=== PATIENT | female | born 1985 | race Caucasian/White ===

== ENCOUNTER 2022-10-30 08:28 | Emergency (ER) | payer OTHER, SELFPAY ==
[2022-10-30 08:29] VITALS: BP 106/80; PULSE 85; RESP 22; TEMP 36.6; O2SAT 100; BMI 19.8
--- NOTE | 2022-10-30 08:38 | CT_ITS ---
HISTORY: Left flank pain. TECHNIQUE: Helically acquired images were obtained of the abdomen and pelvis without oral or IV contrast. A radiation dose optimization technique was used for this scan. 445 images. COMPARISON: None. FINDINGS: LOWER CHEST: Lung bases clear. Breast implants noted BOWEL: Mild hiatal hernia. Bowel including appendix nondilated. 3 mm appendicolith without periappendiceal inflammation. Moderate stool in the colon. LIVER: Unremarkable. GALLBLADDER/BILIARY TREE: Gallbladder present. SPLEEN/PANCREAS: No focal cystic or solid mass. KIDNEYS AND URETERS: Mild left hydroureteronephrosis and perinephric stranding secondary to a 2 mm uterovesical junction calculus. 2 mm left lower pole calculus. No right nephrolithiasis or hydronephrosis. ADRENAL GLANDS: No nodules. VESSELS: No abdominal aortic aneurysm. PELVIC ORGANS: Retroverted uterus. Trace free fluid in the pelvis, which can be physiological. BONES: Intact. CT/Abdomen/Pelvis without Cont IMPRESSION: Mild left hydronephrosis secondary to a 2 mm UVJ calculus. 2 mm left renal calculus. Incidental 3 mm appendicolith. Moderate stool in the colon. Electronically Signed: Keren Rogers MD at 10:09 EDT ,
--- NOTE | 2022-10-30 08:40 | EDS_ITS ---
HPI History of Present Illness Chief Complaint: Flank Pain Informant: patient and spouse/S.O. Narrative Narrative: History is from patient and significant other. They say that about 1 to 2 hours ago she started with left flank pain. It was in the back and has radiated toward the front. She has had nausea and vomiting with this. She has not noticed any urinary changes. Just prior to this she felt perfectly fine. She has had kidney stones in the past but its been 4 years or more. She has never had to have a procedure to remove them. They have always passed on their own. She has not had fevers or chills. No change in bowel habits. Nothing makes it better or worse. No medical conditions No medications No allergies PFSH PFSH Medical History no medical history Home Medications ondansetron 4 mg disintegrating tablet 4 mg PO Q8H PRN PRN Nausea #10 tabs 10/30/22 [Rx Last Taken Unknown] oxycodone-acetaminophen 5 mg-325 mg tablet 1 tab PO Q6H PRN PRN Pain 3 days #12 TABLETS 10/30/22 [Rx Last Taken Unknown] tamsulosin 0.4 mg capsule (Flomax) 0.4 mg PO DAILY #7 caps 10/30/22 [Rx Last Taken Unknown] Allergy/AdvReac Type Severity Reaction Status Date / Time No Known Allergies Allergy Verified 10/30/22 08:31 Surgical History no surgical history Social History Smoking Status: Never smoker ROS ROS ED ROS Narrative A complete review of systems was performed and is negative except as documented in the history of present illness. Some specific details below. Constitutional: No recent fevers or chills. She felt perfectly fine before the onset of pain EYE: No visual complaints or pain. ENT: No difficulty swallowing. No swelling. No pain. CV: No chest pain or palpitations. Respiratory: No dyspnea. No hemoptysis. No difficulty taking breaths. GI: Please see history of present illness. : No frequency dysuria or hematuria. She does have the left flank pain and history of kidney stones. Musculoskeletal: No recent trauma. No pains. Skin: No rash. No vesicles. No burning sensation. Nondiaphoretic. Neuro: No weakness or numbness. Endocrine: No polyuria or polydipsia. EXAM Physical Exam Narrative Exam Narrative: CONSTITUTIONAL: Patient is laying on her left side. She looks uncomfortable. She is holding an emesis bag. Currently is empty but she is nauseated. HEENT: No notable trauma. Mucous membranes moist. EYES: No conjunctival injection. No proptosis. CARDIOVASCULAR: Regular rate. Regular rhythm. No notable murmur. No JVD. RESPIRATORY: No respiratory distress. Breathing is unlabored. No wheezes. No rhonchi. No rales. No pain with a deep breath. GASTROINTESTINAL: Not distended. Bowel sounds are normal. Patient has tenderness just pressing anywhere on the abdomen. Even pressing her T-shirt seems to cause discomfort. I think she is just having so much pain that she is very cautious about palpation. I do not find any 1 area that is obvious objective tenderness that is different than anywhere else. Her abdomen is thin flat nondistended. There is no rash. GENITOURINARY: She does have CVA tenderness even with light touch. No tenderness on the right though. There are no skin changes in that area. MUSCULOSKELETAL: Atraumatic. No peripheral edema. No cord. No tenderness along the deep venous system. No asymmetry. NEUROLOGICAL: Patient is alert but is uncomfortable. SKIN: No noted rashes. No diaphoresis. PSYCHIATRIC: Mood is appropriate. Const Vital Signs: 10/30/22 08:29 Temperature 97.8 F Temperature Source Temporal Pulse Rate 85 Respiratory Rate 22 H Blood Pressure 106/80 Blood Pressure Mean 88 Pulse Ox 100 Oxygen Delivery Method Room Air MDM MDM MDM Narrative Medical decision making narrative: Patient did not get much relief from first dose of morphine. Although nausea is better. We are giving second dose and have given Toradol also. CBC shows mild decreased white count at 4.3 which is nonspecific. Remainder of CBC is normal. Electrolytes are showing no marked abnormalities. Glucose has minimal elevation of 116. test is negative. Independent interpretation the patient's CT of the abdomen does appear to show some left-sided proximal hydronephrosis. There are pelvic calcifications but I cannot definitively say that these are within the path of the ureter as it is difficult to follow as the patient has very little intraperitoneal fat. Final reading is pending at this time. Final reading does show a 2 mm left UVJ stone. There is incidental notation of a 3 mm appendicolith but no sign of inflammatory change and she has no pain in that area. I do not think this is the source of her symptoms. I rechecked the patient. She is a essentially asymptomatic at this time. She has no nausea and no pain. It is quite possible that this stone did pass. However, she was in significant discomfort. I will write her for meds for pain nausea and Flomax. We discussed reasons to return and follow-up. History & Record Review Additional record(s) reviewed:: Prior labs (ComparedOnly prior labs are cholesterol studies. I do not have prior imaging) Lab Data Attestation: I reviewed the patient's lab results. Labs: Laboratory Results - last 24 hr 10/30/22 10/30/22 10/30/22 08:35 08:35 08:35 WBC 4.3 L RBC 4.35 Hgb 13.3 Hct 39.5 MCV 90.8 MCH 30.6 MCHC 33.7 RDW Std Deviation 40.3 RDW Coeff of Parvin 12.1 Plt Count 260 MPV 10.2 Immature Gran % (Auto) 0.200 Neut % (Auto) 57.6 Lymph % (Auto) 30.1 [place] % (Auto) 7.2 Eos % (Auto) 4.2 Baso % (Auto) 0.7 Absolute Neuts (auto) 2.5 Absolute Lymphs (auto) 1.29 Nucleated RBC % 0 Sodium 141 Potassium 3.6 Chloride 111 H Carbon Dioxide 24.0 Anion Gap 6 BUN 15 Creatinine 0.93 Estim Creat Clear Calc 74.24 Est GFR (MDRD) Af Amer 88 Est GFR (MDRD) Non-Af 73 BUN/Creatinine Ratio 16.2 Glucose 116 H Calcium 9.4 Serum , Qual NEGATIVE Urine Color Urine Clarity Urine pH Ur Specific [place] Urine Protein Urine Glucose (UA) Urine Ketones Urine Occult Blood Urine Nitrite Urine Bilirubin Urine Urobilinogen Ur Leukocyte Esterase Urine RBC Urine WBC Ur Squamous Epith Cells Amorphous Sediment Urine Bacteria Urine Mucus 10/30/22 09:05 WBC RBC Hgb Hct MCV MCH MCHC RDW Std Deviation RDW Coeff of Parvin Plt Count MPV Immature Gran % (Auto) Neut % (Auto) Lymph % (Auto) [place] % (Auto) Eos % (Auto) Baso % (Auto) Absolute Neuts (auto) Absolute Lymphs (auto) Nucleated RBC % Sodium Potassium Chloride Carbon Dioxide Anion Gap BUN Creatinine Estim Creat Clear Calc Est GFR (MDRD) Af Amer Est GFR (MDRD) Non-Af BUN/Creatinine Ratio Glucose Calcium Serum , Qual Urine Color Yellow Urine Clarity Cloudy Urine pH 8.0 Ur Specific [place] 1.015 Urine Protein Negative Urine Glucose (UA) Normal Urine Ketones Negative Urine Occult Blood Negative Urine Nitrite Negative Urine Bilirubin Negative Urine Urobilinogen Normal Ur Leukocyte Esterase Negative Urine RBC 0 SEEN Urine WBC 0 SEEN Ur Squamous Epith Cells 0-5 SEEN Amorphous Sediment 2+ Urine Bacteria 0 SEEN Urine Mucus 0 SEEN Radiography Diagnostic Testing: Clinical Impression(s) from Imaging Studies Abdomen/Pelvis CT 10/30/22 08:38 IMPRESSION: Mild left hydronephrosis secondary to a 2 mm UVJ calculus. 2 mm left renal calculus. Incidental 3 mm appendicolith. Moderate stool in the colon. Electronically Signed: Keren Rogers MD at 10:09 EDT Reading Location ID and State: [facility] / [place] Tel , Service support , Discharge Plan Triage Chief Complaint: Flank Pain ED Provider: Easton Rey Dx/Rx/DC Orders Clinical Impression: Kidney stone on left side, Acute abdominal pain in left flank, Nausea & vomiting Instructions: ED Kidney Stone w/ Colic Prescriptions: New oxycodone-acetaminophen [oxycodone-acetaminophen] 5-325 mg tablet 1 tab PO Q6H PRN PRN (Reason: Pain) 3 Days Qty: 12 0RF ondansetron [ondansetron] 4 mg tablet,disintegrating 4 mg PO Q8H PRN PRN (Reason: Nausea) Qty: 10 0RF tamsulosin [Flomax] 0.4 mg capsule 0.4 mg PO DAILY Qty: 7 0RF Primary Care Provider: Deion Smith Referrals: Chaya Sullivan MD [Med Staff - Active Staff] - 3-5 Days Deion Smith PA [Primary Care Provider] - As Needed Disposition Disposition: Home, Self Care
[2022-10-30] MEDS: Ondansetron 4 MG/2 ML Vial IV (08:46)
[2022-10-30] MEDS: Morphine 4 MG/ML Syringe IV ×2 (08:46→09:08)
[2022-10-30] MEDS: 0.9% Normal Saline 1,000 ML 1000 ML IV (08:47)
[2022-10-30 08:48] LABS: Absolute Lymphocyte Count 1.29 X10^3/uL (0.83-4.51); Absolute Neutrophil Count 2.5 X10^3/uL (2.0-7.7); Basophil# 0.03 X10^3/uL; Basophil% 0.7 % (0-1); Eosinophil# 0.18 X10^3/uL; Eosinophils% 4.2 % (0-5); Hematocrit 39.5 % (37-47); Hemoglobin 13.3 g/dL (12.0-15.0); Lymphocyte # 1.29 X10^3/ul (0.83-4.51); Lymphocyte % 30.1 % (19-41); Mean Corp Hgb Conc 33.7 g/dL (32-36); Mean Corpuscular Hgb 30.6 pg (27.0-32.0); Mean Corpuscular Volume 90.8 fL (81-99); Mean Platelet Vol. 10.2 fl (6.2-12.0); Monocyte# 0.31 X10^3/uL; Monocyte% 7.2 % (0-10); NRBC Flagged by Analyzer 0 % (0-5); Neutrophil # 2.46 X10^3/uL (2.7-7.7); Neutrophil % 57.6 % (47-70); Platelet Count 260 K/mm3 (150-450); RBC Distribution Width CV 12.1 % (11.6-14.6); RBC Distribution Width SD 40.3 fl (35.1-43.9); Red Blood Count 4.35 M/mm3 (4.2-5.4); White Blood Count 4.3 K/mm3 (4.4-11.0)
[2022-10-30 08:58] LABS: Anion Gap 6 (5-15); BUN 15 mg/dL (7-18); BUN/Creat Ratio 16.2 RATIO (10-20); Calcium,Total 9.4 mg/dL (8.5-10.1); Chloride 111 mmol/L (98-107); Creatinine, Serum 0.93 mg/dL (0.55-1.02); EST Glomerular Filtration Rate 73 mL/min (>60); Est Glom Filt Rate - Afr Amer 88 mL/min (>60); Estimated Creatinine Clearance 74.24 ml/min; Glucose 116 mg/dL (74-106); Potassium 3.6 mmol/L (3.5-5.1); Sodium Level 141 mmol/L (136-145)
[2022-10-30 09:00] LABS: Internal QC Validated? YES +Cl - CLEAR BKGD; Pregnancy, Serum, hCG Quali. NEGATIVE Negative
[2022-10-30] MEDS: Ketorolac 15 MG/ML Vial IV (09:08)
[2022-10-30 09:12] LABS: Bacteria 0 SEEN /hpf (None Seen); Mucous, Urine 0 SEEN /hpf (<or=2+); Red Blood Cells-Urine 0 SEEN /hpf (0-5); White Blood Cells 0 SEEN /hpf (0-5)
[2022-10-30 09:26] LABS: Color, Urine Yellow (Yellow); Glucose, Dipstick Normal (Normal); Ketone-Dipstick Negative (Negative); Leukocyte Esterase-Dipstick Negative /ul (Negative); Nitrite-Dipstick Negative (Negative); Occult Blood-Urine Negative /ul (Negative); Protein-Dipstick Negative (Negative); Specific Gravity, Urine 1.015 (1.002-1.030); Urine Bilirubin Dipstick Negative (Negative); Urine Clarity Cloudy (Clear); Urine Urobilinogen Normal (Normal)
[2022-10-30 09:37] LABS: Amorphous Sediment 2+; Squamous Epithelial Cells - UA 0-5 SEEN /hpf (5-10)
== END 2022-10-30 10:51 | disposition home or self-care (01) ==
PROVIDERS: Emergency Provider Emergency Medicine; PCP Physician Assistant; Visit Provider Emergency Medicine
DX: N13.2 Hydronephrosis with renal and ureteral calculous obstruction (principal); Z87.442 Personal history of urinary calculi
CPT/HCPCS: 74176; 80048; 81001; 84703; 85025; 96361; 96374; 96375; 99283; J7030; A4216; J2405